=== PATIENT | female | born 1945 | race Caucasian/White ===

== ENCOUNTER 2018-01-09 14:04 | Observation (INO) | payer MEDICARE, OTHER ==
[2018-01-09] MEDS ORDERED: Sodium Chloride 0.9% 1,000 ML IV STA (14:41)
--- NOTE | 2018-01-09 14:50 | ED PDOC ---
Arrival/HPI - General Time Seen by Provider: 01/09/18 14:08 Historian: Patient - History of Present Illness Narrative History of Present Illness (Text): 01/09/18 14:51 A 72 year old female, whose past medical history includes hypertension, presents to the emergency department with grandson for further evaluation of a near syncopal episode today. The patient states that she stood up from her couch, felt lightheaded, and as she was going to walk to the restroom, she fell. She notes that she felt lightheaded. The patient's grandson states that she was vomiting yesterday. When asked, the patient reports that she had 3 episodes of vomiting yesterday because she "felt sick to her stomach". He states that he heard the patient fall and found her on hard floor, laying on her side. Patient denies loss of consciousness, injury/ trauma to her head. She denies fevers, chills, headache, chest pain, shortness of breath, dyspnea on exertion, cough, abdominal pain, diarrhea, back pain, neck pain, urinary/bowel changes, or any other complaint. PMD: Dr. Domenic Blackmon Time/Duration: Other (Today) Symptom Onset: Sudden Symptom Course: Unchanged Activities at Onset: Rest, Light Context: Home Past Medical History - Provider Review Nursing Documentation Reviewed: Yes - Cardiac Hx Pacemaker: No - Neurological Hx Paralysis: No - Hematological/Oncological Hx Blood Transfusions: No Hx Blood Transfusion Reaction: No - Musculoskeletal/Rheumatological Hx Musculoskeletal Disorders: No - Psychiatric Hx Physical Abuse: No - Anesthesia Hx Anesthesia Reactions: No Hx Malignant Hyperthermia: No - Suicidal Assessment Feels Threatened In Home Enviroment: No Family/Social History - Physician Review Nursing Documentation Reviewed: Yes Family/Social History: No Known Family HX Allergies/Home Meds Allergies/Adverse Reactions: Allergies No Known Allergies Allergy (Verified 09/13/11 11:37) Home Medications: Home Meds Medication Instructions Recorded Confirmed Telmisartan/Hydrochlorothiazid 1 tab PO DAILY 09/13/11 01/09/18 [Micardis Hct 12.5 mg-80 mg] Carvedilol [Coreg] 12.5 mg PO BID 01/09/18 01/09/18 amLODIPine [Norvasc] 10 mg PO DAILY 01/09/18 01/09/18 Review of Systems - Physician Review All systems were reviewed & negative as marked: Yes - Review of Systems Constitutional: absent: Fevers Respiratory: absent: SOB, Cough Cardiovascular: absent: Chest Pain, BRENNAN Gastrointestinal: Nausea, Vomiting. absent: Abdominal Pain, Stool Changes, Diarrhea Genitourinary Female: absent: Urine Output Changes Musculoskeletal: absent: Back Pain, Neck Pain Neurological: Dizziness. absent: Headache Physical Exam Vital Signs Reviewed: Yes Vital Signs Temp Pulse Resp BP Pulse Ox 01/09/18 14:08 97.4 F L 82 18 92/60 L 96 Temperature: Hypothermic Blood Pressure: Hypotensive Pulse: Regular Respiratory Rate: Normal Appearance: Positive for: Well-Appearing, Non-Toxic, Comfortable Pain Distress: None Mental Status: Positive for: Alert and Oriented X 3 - Systems Exam Head: Present: Atraumatic, Normocephalic Pupils: Present: PERRL Extroacular Muscles: Present: EOMI Conjunctiva: Present: Normal Mouth: Present: Moist Mucous Membranes Neck: Present: Normal Range of Motion. No: MIDLINE TENDERNESS Respiratory/Chest: Present: Clear to Auscultation, Good Air Exchange. No: Respiratory Distress, Accessory Muscle Use Cardiovascular: Present: Regular Rate and Rhythm, Normal S1, S2. No: Murmurs Abdomen: No: Tenderness, Distention, Peritoneal Signs Back: Present: Normal Inspection. No: Midline Tenderness Upper Extremity: Present: Normal Inspection. No: Cyanosis, Edema Lower Extremity: Present: Normal Inspection. No: Edema Neurological: Present: GCS=15, CN II-XII Intact, Speech Normal Skin: Present: Warm, Dry, Normal Color. No: Rashes Psychiatric: Present: Alert, Oriented x 3, Normal Insight, Normal Concentration Medical Decision Making ED Course and Treatment: 01/09/18 14:31 Impression: A 72 year old female presents to the emergency department for further evaluation of lightheadedness and fall today. Differential Diagnosis included but are not limited to: Near syncope secondary to dehydration vs. cardiac Plan: -- Head CT -- EKG -- Chest X-ray -- Labs -- Urinalysis -- IV Fluids -- Reassess and disposition Prior Visits: Notes and results from previous visits were reviewed. Progress Notes: EKG: Ordered, reviewed, and independently interpreted the EKG. Rate : 80 BPM Rhythm : NSR Interpretation : ST depressions and T wave inversions in leads v4-v6, 2, 3, and AVF 01/09/18 15:30: Orthostatics: Laying Blood Pressure: 98/64 Heart Rate: 75 BPM No dizziness. Sitting Blood Pressure 75/50 Heart Rate: 88 BPM Standing Blood Pressure: 86/59 Heart Rate: 90 BPM PROCEDURE: CT HEAD WITHOUT CONTRAST Dictated By: Chino Chandler MD Date Signed: 01/09/18 1528 IMPRESSION: No acute intracranial findings. 01/09/18 16:04 PROCEDURE: Chest X-ray reviewed by me IMPRESSION: No active disease. 01/09/18 17:[address] Head negative. In light of her near syncope, ekg changes, and ARF will recommend admission. Case was discussed with Dr. Domenic Blackmon who will admit to his service. He recommend Dr. Arredondo for Cardiology. - Lab Interpretations I have reviewed the lab results: Yes - EKG Interpretation Interpreted by ED Physician: Yes Type: 12 lead EKG - Scribe Statement The provider has reviewed the documentation as recorded by the Scribe Shell Youssef Provider Scribe Attestation: All medical record entries made by the Scribe were at my direction and personally dictated by me. I have reviewed the chart and agree that the record accurately reflects my personal performance of the history, physical exam, medical decision making, and the department course for this patient. I have also personally directed, reviewed, and agree with the discharge instructions and disposition. Disposition/Present on Arrival - Present on Arrival Any Indicators Present on Arrival: No - Disposition Have Diagnosis and Disposition been Completed?: Yes Diagnosis: Near syncope, ARF (acute renal failure), Abnormal EKG Disposition Time: 17:51 Patient Plan: Admission Condition: FAIR
[2018-01-09 15:18] LABS: BASO # 0.01 K/mm3 (0.0-2.0); BASO % 0.1 % (0.0-3.0); EOS % 0.1 % (1.5-5.0); GRAN # 6.47 (1.4-6.5); GRAN % 83.2 % (50.0-68.0); HEMOGLOBIN 11.6 g/dL (12.0-16.0); LYMPH # 0.9 (1.2-3.4); MEAN CELL VOLUME 85.5 fl (80.0-105.0); MEAN CORPUSCULAR HEMOGLOBIN 27.6 pg (25.0-35.0); MEAN CORPUSCULAR HGB CONC 32.2 g/dl (31.0-37.0); MEAN PLATELET VOLUME 10.1 fl (7.0-11.0); MONO # 0.4 (0.1-0.6); MONO % 4.6 % (1.0-6.0); RBC 4.21 10^6/uL (3.5-6.1); RED CELL DISTRIBUTION WIDTH 14.5 % (11.5-14.5); WHITE BLOOD COUNT 7.8 10^3/uL (4.5-11.0)
[2018-01-09 15:22] LABS: ALB/GLOB RATIO 1.3 (1.1-1.8); ALBUMIN 4.5 g/dL (3.0-4.8); ALT/SGPT 18 U/L (7-56); AST/SGOT 28 U/L (14-36); BLOOD UREA NITROGEN 42 mg/dL (7-21); CALCIUM 9.2 mg/dL (8.4-10.5); GFR NON-AFRICAN AMERICAN 20
--- NOTE | 2018-01-09 15:32 | CT ---
Date of service: 01/09/2018 PROCEDURE: CT HEAD WITHOUT CONTRAST. HISTORY: syncope COMPARISON: None available. TECHNIQUE: Axial computed tomography images were obtained through the head/brain without intravenous contrast. Radiation dose: Total exam DLP = 886.82 mGy-cm. This CT exam was performed using one or more of the following dose reduction techniques: Automated exposure control, adjustment of the mA and/or kV according to patient size, and/or use of iterative reconstruction technique. FINDINGS: HEMORRHAGE: No intracranial hemorrhage. BRAIN: No mass effect or edema. There is a focal area of subcortical encephalomalacia in the left posterior parietal lobe. No acute findings. VENTRICLES: Unremarkable. No hydrocephalus. CALVARIUM: Unremarkable. PARANASAL SINUSES: Unremarkable as visualized. No significant inflammatory changes. MASTOID AIR CELLS: Unremarkable as visualized. No inflammatory changes. OTHER FINDINGS: None. IMPRESSION: No acute intracranial findings
[2018-01-09 15:33] LABS: TROPONIN I < 0.01 ng/mL
--- NOTE | 2018-01-09 16:07 | RAD ---
Date of service: 01/09/2018 PROCEDURE: CHEST RADIOGRAPH, 1 VIEW HISTORY: near syncope COMPARISON: None available. FINDINGS: LUNGS: Clear. PLEURA: No pneumothorax or pleural fluid seen. CARDIOVASCULAR: Minimal aortic calcification normal. OSSEOUS STRUCTURES: No significant abnormalities. VISUALIZED UPPER ABDOMEN: Normal. OTHER FINDINGS: None. IMPRESSION: No active disease.
--- NOTE | 2018-01-09 18:09 | CARD ---
APPROVED REPORT Date of service: 01/09/2018 EKG Measurement Heart [id number] <Conclusion> Normal sinus rhythm Minimal voltage criteria for LVH, may be normal variant ST & Marked T wave abnormality, consider inferolateral ischemia Abnormal ECG
[2018-01-09 18:48] LABS: PH,URINE 5.5 (4.7-8.0); URINE BILIRUBIN SMALL (NEGATIVE); URINE BLOOD NEGATIVE (NEGATIVE); URINE GLUCOSE (UA) NEGATIVE (NEGATIVE); URINE LEUKOCYTE ESTERASE TRACE Leu/uL (NEGATIVE); URINE PROTEIN 30 mg/dL (<30 mg/dL); URINE UROBILINOGEN 0.2 E.U./dL (<1 E.U./dL)
[2018-01-09 18:50] LABS: URINE APPEARANCE TURBID (CLEAR); URINE COLOR YELLOW (YELLOW)
[2018-01-09 18:54] LABS: URINE RBC NEGATIVE /hpf (0-2)
[2018-01-09 23:42] VITALS: BMI 23.4
[2018-01-09] MEDS ORDERED: Pneumococcal 23-Valent Vaccine IM ONE (23:42)
[2018-01-09] MEDS ORDERED: Influenza Vaccine 60 mcg/0.5 mL SYR (4YR UP) IM ONE (23:42)
--- NOTE | 2018-01-10 08:09 | HP ---
DATE OF EXAM: 01/09/2018 HISTORY OF PRESENT ILLNESS: The patient is 72-year-old female I admitted through the emergency department on 01/09/2018 with a near syncopal episode. The patient said she felt lightheaded while standing up. She reported a couple of days previous with vomiting and nausea. She denies any head trauma, loss of consciousness. No fevers, no chills. No cough. No chest pain or shortness of breath. PAST MEDICAL HISTORY: The patient's past medical history includes hypertension. PAST SURGICAL HISTORY: Includes status post CA of the breast, status post lumpectomy with radiation chemotherapy in the past. MEDICATIONS: The patient's current medications include telmisartan/hydrochlorothiazide 12.5/80 1 tablet daily, carvedilol 12.5 mg twice daily, amlodipine 10 mg daily. ALLERGIES: THE PATIENT HAS NO KNOWN DRUG ALLERGIES. FAMILY HISTORY: Noncontributory. SOCIAL HISTORY: The patient is independent with ADLs and IADLs. There is no history of tobacco or alcohol use. REVIEW OF SYSTEMS: Essentially as above. PHYSICAL EXAMINATION: GENERAL: The patient is a well-developed female, in no acute distress. VITAL SIGNS: Blood pressure 116/71, temperature 98.2, pulse 74, respiratory rate 16. HEENT: Head is normocephalic, atraumatic. Pupils equal, round, reactive to light. Extraocular movements intact. NECK: Supple with no thyromegaly. No carotid bruit. No adenopathy. LUNGS: Clear. HEART: Regular rate and rhythm. ABDOMEN: Soft, nontender. Bowel sounds are normoactive. EXTREMITIES: Without cyanosis, clubbing or edema. NEUROLOGIC: The patient is awake and oriented x3 without focal sensory or motor deficits. SKIN: Warm and dry. LABORATORY DATA: WBC 7.8, hemoglobin 11.6, hematocrit 36.0. Sodium 138, potassium 4.1, chloride 95, CO2 of 32, BUN is elevated at 42, creatinine 2.4, glucose 113. Troponin is less than 0.01. Total CPK is 84. CT scan of the head was negative for any acute bleeds or infarcts. Chest x-ray showed no active disease. IMPRESSION: 1. Near syncope, rule out secondary to dehydration, status post gastroenteritis. 2. Acute kidney injury, rule out secondary to volume depletion. 3. History of hypertension. 4. History of cancer of breast. PLAN: The patient is admitted to the medical-surgical floor. We will obtain Cardiology consultation with Dr. Arredondo/Dr. Tomlin. We will give IV hydration with normal saline 100 mL/hour and monitor electrolytes, BUN and creatinine. Social work for discharge planning. Gilbert Blackmon JD/
[2018-01-10] MEDS: Sodium Chloride 0.9% 1,000 ML IV SCH ×2 (08:22→20:35)
--- NOTE | 2018-01-10 20:23 | CARD ---
APPROVED REPORT Date of service: 01/10/2018 EKG Measurement Heart [id number] <Conclusion> Sinus rhythm with premature atrial complexes Moderate voltage criteria for LVH, may be normal variant T wave abnormality, consider inferior ischemia T wave abnormality, consider anterolateral ischemia Prolonged QT Abnormal ECG
--- NOTE | 2018-01-10 23:00 | CON ---
DATE: 01/10/2018 REASON FOR ADMISSION: Syncopal episode. HISTORY OF PRESENT ILLNESS: The patient is 72-year-old female who has a history of hypertension, otherwise healthy, lives with her grandson, who was admitted because of a syncopal episode. The patient stated that she was sitting on a couch, felt dizzy, and fell on her left hip to floor, sustained no injuries. The patient does not recall experiencing palpitation or chest pain. The patient denies any prior similar fall episodes. SOCIAL HISTORY: Nonsmoker and nondrinker. She lives with her grandson who is at the bedside. MEDICATIONS: Normal saline infusion at 100 mL an hour. The patient did receive aspirin 162 mg in the emergency room. MEDICATIONS AT HOME: The patient was on amlodipine 10 mg once a day, Coreg 12.5 mg twice a day, and Micardis/hydrochlorothiazide 1 tablet daily. REVIEW OF SYSTEMS: No recent nausea or vomiting. No fever or chills. PHYSICAL EXAMINATION GENERAL: The patient is an elderly female who does not appear to be in acute distress. VITAL SIGNS: Blood pressure 116/71, heart rate 74, temperature 98.2, and respirations 16. HEENT: Normocephalic. NECK: No JVD. CHEST: Clear. HEART: S1 and S2 regular. ABDOMEN: Soft. EXTREMITIES: No edema. LABORATORY DATA: SMA-7: Sodium 138, potassium 4.1, chloride 95, CO2 of 32, BUN 42, creatinine 2.4, glucose 113. Hemoglobin and hematocrit 11.6 and 36, white count and platelet count are within normal limits. EKG revealed sinus rhythm at a rate of 80, consider inferolateral ischemia with prolonged QT interval. Head CT scan without contrast; no acute findings. Chest x-ray; no active disease. ASSESSMENT: 1. Near syncopal episode. 2. Acute renal insufficiency, last year the BUN and creatinine were 18 and 0.9 respectively, currently are 42 and 2.4 respectively. 3. Ischemic inferolateral EKG changes, rule out myocardial infarction. One set of troponin is negative. 4. History of hypertension. RECOMMENDATIONS: Start aspirin at 81 mg orally daily. Obtain carotid Doppler and echocardiogram and obtain one more test of troponin EKG. Jones Moore MD [facility] # [id number]
[2018-01-11 03:45] VITALS: O2SAT 99
[2018-01-11 07:41] LABS: EOS % 0.9 % (1.5-5.0); GRAN # 2.97 (1.4-6.5); GRAN % 63.4 % (50.0-68.0); LYMPH # 1.2 (1.2-3.4); LYMPH % 26.5 % (22.0-35.0); MEAN CELL VOLUME 85.8 fl (80.0-105.0); MEAN CORPUSCULAR HEMOGLOBIN 27.3 pg (25.0-35.0); MEAN CORPUSCULAR HGB CONC 31.8 g/dl (31.0-37.0); MEAN PLATELET VOLUME 10.2 fl (7.0-11.0); MONO # 0.4 (0.1-0.6); MONO % 9.2 % (1.0-6.0); RBC 3.66 10^6/uL (3.5-6.1); RED CELL DISTRIBUTION WIDTH 14.1 % (11.5-14.5); WHITE BLOOD COUNT 4.7 10^3/uL (4.5-11.0)
[2018-01-11 07:49] LABS: ALB/GLOB RATIO 1.3 (1.1-1.8); ALBUMIN 3.5 g/dL (3.0-4.8); CALCIUM 8.3 mg/dL (8.4-10.5)
[2018-01-11] MEDS: Sodium Chloride 0.9% 1,000 ML IV SCH ×2 (09:09→13:31)
[2018-01-11 12:41] VITALS: BP 122/59; PULSE 68; RESP 18; TEMP 98.7
[2018-01-11] MEDS ORDERED: Influenza Vaccine 60 mcg/0.5 mL SYR (4YR UP) IM ONE (13:13)
--- NOTE | 2018-01-11 17:18 | PN ---
DATE: 01/11/2018 SUBJECTIVE: The patient ambulated, no dizziness, no palpitations, no reported arrhythmia. PHYSICAL EXAMINATION: VITAL SIGNS: Blood pressure 122/59, heart rate 68, temperature 98.7, respirations 18. HEENT: Normocephalic. CHEST: Clear. HEART: S1, S2 regular. EXTREMITIES: No edema. LABORATORY DATA: Today's hemoglobin and hematocrit 10 and 31.4. White count and platelet count are within normal limits. Today's SMA-7 is within normal limits except for BUN of 32 and anion gap of 9. Calcium is slightly below normal at 8.3. Two sets of troponins are negative. Repeat 12-lead EKG yesterday revealed sinus rhythm. Consider anterolateral ischemic changes with prolonged QT interval. ASSESSMENT: 1. Anterolateral ischemic EKG changes. Myocardial infarction was ruled out. 2. Near syncopal episode. 3. Acute renal insufficiency. 4. Hypertension. RECOMMENDATIONS: Continue current normal saline infusion. Start aspirin 81 mg once a day. Case will be discussed with Dr. Gilbert Blackmon for future outpatient cardiac evaluation including echo and stress test. Jones Moore MD
== END 2018-01-11 14:29 | disposition home or self-care (01) ==
LOC: ED 14:04 → INTOOBSV 18:40 → ERH 18:40 → 2RNO 23:17
PROVIDERS: ADMIT Internal Medicine; ATTEND Internal Medicine
DX: E86.0 Dehydration (principal); N17.9 Acute kidney failure, unspecified; R55 Syncope and collapse; I10 Essential (primary) hypertension; W19.XXXA Unspecified fall, initial encounter; Z85.3 Personal history of malignant neoplasm of breast; Z92.21 Personal history of antineoplastic chemotherapy; Z23 Encounter for immunization
CPT/HCPCS: 36415; 70450; 71045; 80053; 81001; 82550; 83615; 83735; 84484; 85025; 87086; 90471; 90674; 93005; 96360; 99285; G0378; J7030

== ENCOUNTER 2018-03-22 13:07 | Emergency (ER) | payer MEDICARE ==
[2018-03-22 13:07] VITALS: BMI 23.4
[2018-03-22 13:25] VITALS: BP 152/103; RESP 18; TEMP 98.2; O2SAT 100
--- NOTE | 2018-03-22 13:52 | ED PDOC ---
Arrival/HPI - General Chief Complaint: Back Pain Time Seen by Provider: 03/22/18 13:08 - History of Present Illness Narrative History of Present Illness (Text): 73 y/o F c PMHx HTN, breast cancer s/p bilateral mastectomy p/w dyspnea on exertion and R breast swelling x over 2 days. Short of breath while walking this morning, improved with rest. Denies chest pain, fever, chills, general weakness, rash, cough. PMD Kimberly Blackmon. Past Medical History - Infectious Disease Hx of Infectious Diseases: None - Cardiac Hx Cardiac Disorders: Yes Hx Hypertension: Yes Hx Pacemaker: No - Pulmonary Hx Respiratory Disorders: Yes (USED TO SMOKE IN HER TEENS) - Neurological Hx Neurological Disorder: Yes Hx Dizziness: Yes (01-09-18) - HEENT Hx HEENT Disorder: No - Renal Hx Renal Disorder: No - Endocrine/Metabolic Hx Endocrine Disorders: No - Hematological/Oncological Hx Blood Disorders: Yes Hx Cancer: Yes (BREAST CA WITH TOTAL MASTECTOMY AND BREAST IMPLANTS,COLON CA) - Integumentary Hx Dermatological Disorder: No - Musculoskeletal/Rheumatological Hx Musculoskeletal Disorders: Yes Hx Falls: Yes (01-09-18) - Gastrointestinal Hx Gastrointestinal Disorders: Yes (COLON CA ,BOWEL OBSTRUCTION) - Genitourinary/Gynecological Hx Genitourinary Disorders: Yes (BREAST CA WITH IMPLANTS,TOTAL MASTECTOMY) Other/Comment: C/S X 3 - Psychiatric Hx Psychophysiologic Disorder: No Hx Physical Abuse: No Hx Substance Use: No - Anesthesia Hx Anesthesia Reactions: No Hx Malignant Hyperthermia: No - Suicidal Assessment Feels Threatened In Home Enviroment: No Family/Social History Family/Social History: No Known Family HX Smoking Status: Former Smoker Hx Alcohol Use: No Hx Substance Use: No Allergies/Home Meds Allergies/Adverse Reactions: Allergies No Known Allergies Allergy (Verified 03/22/18 13:24) Home Medications: Home Meds Medication Instructions Recorded Confirmed Aspirin [Aspirin Chewable] 81 mg PO DAILY 01/11/18 01/11/18 Review of Systems - Physician Review All systems were reviewed & negative as marked: Yes - Review of Systems Constitutional: absent: Fevers Cardiovascular: absent: Chest Pain Physical Exam - Physical Exam Narrative Physical Exam (Text): Gen: NAD Head: NC/AT Eyes: PERRL ENT: MMM Neck: Supple Chest: Slight elevation of R sided breast tissue superior to implant site CV: Regular rate Lungs: CTA b/l Abd: Soft, NT Back: No CVA tenderness Skin: No rash Neuro: Alert, no focal deficit Extremities: No edema Vital Signs Temp Pulse Resp BP Pulse Ox 03/22/18 13:07 98.2 F 86 18 152/103 H 100 Medical Decision Making ED Course and Treatment: Differential: lung metasteses, anxiety, ACS, breast implant rupture, pneumonia, URI, PE. CTA Chest. CT unremarkable, copy given to patient and instructed to f/u with PMD for further evaluation. Discharged home, instructed to return to ED for worsening breathing, pain, fever, vomiting, or any other problem. EKG NSR 85 bpm, T wave inversions infeiror and lateral, unchanged from previous. Enzymes negative in these symtoms of 3 days duration. Disposition/Present on Arrival - Present on Arrival Any Indicators Present on Arrival: No History of DVT/PE: No History of Uncontrolled Diabetes: No Urinary Catheter: No History of Decub. Ulcer: No History Surgical Site Infection Following: None - Disposition Have Diagnosis and Disposition been Completed?: Yes Diagnosis: Dyspnea Disposition: HOME/ ROUTINE Disposition Time: 15:56 Patient Plan: Discharge Condition: STABLE Discharge Instructions (ExitCare): Shortness of Breath (Dyspnea) (DC) Additional Instructions: FINDINGS: PULMONARY ARTERIES: Unremarkable. No pulmonary embolism. AORTA: No acute findings. No thoracic aortic aneurysm. There is atherosclerotic calcification of the thoracic aorta. LUNGS: No pulmonary infiltrate. No mass. There is mild nonspecific interlobular septal thickening noted in the lung apices. Minimal lingular linear scar/atelectasis. PLEURAL SPACES: Minimal bilateral pleural effusion. No pneumothorax. HEART: Mild cardiomegaly. No pericardial effusion. Mild dilatation of the main pulmonary artery up to 3.3 cm. This may correlate with pulmonary arterial hypertension. LYMPH NODES: No lymphadenopathy. BONES, CHEST WALL: Unremarkable. No fracture or destructive lesion OTHER FINDINGS: Bilateral breast augmentation prostheses are noted. IMPRESSION: No evidence of pulmonary embolism. Minimal bilateral pleural effusion. Cardiomegaly. Dilated main pulmonary artery which may correlate with pulmonary arterial hypertension. Minor findings as above. Referrals: Gilbert Blackmon JD, MD [Family Provider] - Follow up with primary Forms: [employer] ([employer])
[2018-03-22 14:40] LABS: BASO # 0.02 K/mm3 (0.0-2.0); BASO % 0.6 % (0.0-3.0); EOS % 0.6 % (1.5-5.0); GRAN # 1.75 (1.4-6.5); GRAN % 54.1 % (50.0-68.0); HEMOGLOBIN 10.3 g/dL (12.0-16.0); LYMPH # 1.2 (1.2-3.4); LYMPH % 37.3 % (22.0-35.0); MEAN CELL VOLUME 84.6 fl (80.0-105.0); MEAN CORPUSCULAR HEMOGLOBIN 27.8 pg (25.0-35.0); MEAN CORPUSCULAR HGB CONC 32.9 g/dl (31.0-37.0); MEAN PLATELET VOLUME 10.8 fl (7.0-11.0); MONO # 0.2 (0.1-0.6); MONO % 7.4 % (1.0-6.0); RBC 3.7 10^6/uL (3.5-6.1); RED CELL DISTRIBUTION WIDTH 14.5 % (11.5-14.5); WHITE BLOOD COUNT 3.2 10^3/uL (4.5-11.0)
[2018-03-22 14:43] LABS: INR 1.12; PARTIAL THROMBOPLASTIN TIME 29.2 Seconds (25.1-36.5); PROTHROMBIN TIME 12.8 SECONDS (9.4-12.5)
[2018-03-22 14:58] LABS: ALB/GLOB RATIO 1.4 (1.1-1.8); ALT/SGPT 45 U/L (7-56); AST/SGOT 39 U/L (14-36); BLOOD UREA NITROGEN 15 mg/dL (7-21); CALCIUM 9.5 mg/dL (8.4-10.5); GFR NON-AFRICAN AMERICAN 55; LIPASE 33 U/L (23-300)
[2018-03-22 15:10] LABS: TROPONIN I < 0.01 ng/mL
[2018-03-22] MEDS ORDERED: Iohexol 350 MG/100 ML VIAL ONE (15:13)
--- NOTE | 2018-03-22 15:52 | CT ---
Date of service: 03/22/2018 PROCEDURE: CT Chest with contrast (Pulmonary Angiogram) HISTORY: dyspnea, h/o breast cancer, R breast swelling COMPARISON: None available. TECHNIQUE: Axial computed tomography images were obtained of the chest in the pulmonary arterial phase of enhancement. Coronal and sagittal reformatted images were created and reviewed. Intravenous contrast dose: 100 mL Omnipaque 350 Radiation dose: Total exam DLP = 385.09 mGy-cm. This CT exam was performed using one or more of the following dose reduction techniques: Automated exposure control, adjustment of the mA and/or kV according to patient size, and/or use of iterative reconstruction technique. FINDINGS: PULMONARY ARTERIES: Unremarkable. No pulmonary embolism. AORTA: No acute findings. No thoracic aortic aneurysm. There is atherosclerotic calcification of the thoracic aorta. LUNGS: No pulmonary infiltrate. No mass. There is mild nonspecific interlobular septal thickening noted in the lung apices. Minimal lingular linear scar/atelectasis. PLEURAL SPACES: Minimal bilateral pleural effusion. No pneumothorax. HEART: Mild cardiomegaly. No pericardial effusion. Mild dilatation of the main pulmonary artery up to 3.3 cm. This may correlate with pulmonary arterial hypertension. LYMPH NODES: No lymphadenopathy. BONES, CHEST WALL: Unremarkable. No fracture or destructive lesion OTHER FINDINGS: Bilateral breast augmentation prostheses are noted. IMPRESSION: No evidence of pulmonary embolism. Minimal bilateral pleural effusion. Cardiomegaly. Dilated main pulmonary artery which may correlate with pulmonary arterial hypertension. Minor findings as above.
[2018-03-22 15:56] VITALS: PULSE 83
--- NOTE | 2018-03-23 09:58 | CARD ---
APPROVED REPORT Date of service: 03/22/2018 EKG Measurement Heart [id number] <Conclusion> Poor data quality, interpretation may be adversely affected Normal sinus rhythm Possible Left atrial enlargement Left ventricular hypertrophy ST & T wave abnormality, consider inferolateral ischemia Prolonged QT Abnormal ECG
== END 2018-03-22 16:13 | disposition home or self-care (01) ==
LOC: ED 13:07
DX: R06.00 Dyspnea, unspecified (principal); I10 Essential (primary) hypertension; Z85.3 Personal history of malignant neoplasm of breast; Z87.891 Personal history of nicotine dependence
CPT/HCPCS: 71275; 80053; 82550; 83690; 84484; 85025; 85610; 85730; 93005; 99283; Q9967